=== PATIENT | female | born 1965 | race African-American/Black ===

== ENCOUNTER 2017-06-15 08:50 | Emergency (ER) | payer OTHER ==
[~2017-06-15] VITALS: Ht 160 cm; Wt 68.0 kg
--- NOTE | ~2017-06-15 | CR2 ---
[facility] A Service of [facility] RADIOLOGY TEXT RESULTS PATIENT: NIRMAL DIAS LOCATION: [facility] : 61 UNIT #: [id number] AGE: [address]: Cheri Hogue MD SEX: F ORDER DR: [id number] [facility] [address] [place], [place] [address] [id number] E MR#: [id number] Acc #: [id number] NAME: NIRMAL DIAS. : 1965 SEX: F STUDY DATE/TIME: 06/15/2017 9:45 UNIT: [facility] ROOM: STUDY DESCRIPTION: CR Abdomen Acute Series Attending Physician: Cheri Hogue M.D. Ordering Physician: Cheri Hogue M.D. Primary Care Physician: [facility] MEDICAL IMAGING REPORT This report is preliminary unless electronic signature is present EXAM Acute abdominal series 3 views, 06/15/2017 COMPARISON None HISTORY Left side rib and abdomen pain and constipation for 2 days. FINDINGS There is some spinal degenerative change and a thoracic or thoracolumbar levoscoliosis but no acute bony abnormality. Chest radiograph suggests mild cardiomegaly but otherwise shows no acute disease. Bowel gas pattern is normal. No evidence of obstruction or free air or mass. Dictated by... Seth Ortez M.D. THIS IS AN ELECTRONICALLY VERIFIED REPORT Seth Ortez M.D. at 06/15/2017 4:05 PM MIRACLE/tyrese TD: 06/15/2017 10:39 JOB #: [id number] MEDICAL IMAGING REPORT Page 1 of 1 COPY
[2017-06-15 09:47] LABS: BASOPHIL% 0.7 % (0-2.5); EOSINOPHIL# 0.1 X10e3 (0-0.7); EOSINOPHIL% 1.9 % (0.0-7.0); HEMATOCRIT 32.6 % (35.0-45.0); HEMOGLOBIN 10.4 gm/dL (12.0-16.0); LYMPHOCYTE# 1.4 X10e3 (1.0-3.5); LYMPHOCYTE% 32.7 % (17.0-45.0); MEAN CELL VOLUME 73.1 FL (83-96); MEAN CORPUSCULAR HEMOGLOBIN 23.4 PG (28-34); MEAN CORPUSCULAR HGB CONC 32.1 g/dL (30-36); MEAN PLATELET VOLUME 7.4 FL (6.5-11.5); MONOCYTE# 0.5 X10e3 (0-1.0); NEUTROPHIL# 2.3 X10e3 (1.5-7.1); NEUTROPHIL% 52.7 % (40-75); PLATELET COUNT 261 X10e3 (140-420); RED BLOOD COUNT 4.46 X10e (3.90-5.30); RED CELL DISTRIBUTION WIDTH 18.8 % (11.0-15.5); WHITE BLOOD COUNT 4.4 X10e3 (4.0-10.5)
[2017-06-15 09:49] LABS: DIFF IND NO
[2017-06-15 10:18] LABS: ALBUMIN SERUM 3.7 g/dL (3.5-5.0); BILIRUBIN, DIRECT 0.1 mg/dL (0.0-0.2); BILIRUBIN,INDIRECT 0.2 mg/dL (0.0-0.9); BILIRUBIN,TOTAL 0.3 mg/dL (0.2-2.0); BUN/CREATININE RATIO 16.66; CREATININE SERUM 0.6 mg/dL (0.6-1.4); GLOM FILT RATE Estimated 119.8 mL/min (>60); POTASSIUM 4.1 mmol/L (3.5-5.1); PROTEIN TOTAL SERUM 6.9 g/dL (6.0-8.3)
[2017-06-15 10:37] LABS: URINE SOURCE CLEAN CATCH
[2017-06-15 10:42] LABS: URINE APPEARANCE CLOUDY; URINE BILIRUBIN NEG (NEG); URINE BLOOD NEG (NEG); URINE COLOR YELLOW; URINE GLUCOSE NEG (NEG); URINE KETONE NEG (NEG); URINE LEUKOCYTE ESTERASE 1+ (NEG); URINE NITRATE NEG (NEG); URINE PROTEIN NEG (NEG); URINE SPECIFIC GRAVITY 1.018 (1.003-1.035)
[2017-06-15 10:43] LABS: CULTURE INDICATED? YES; U HYALINE CASTS AUWI 0-2 /[LPF]; URBCS1 AUWI 0-2 /[HPF] (0-2); URINE BACTERIA AUWI 1+ (NEGATIVE); URINE SQUAMOUS EPITHELIAL CELL MOD /[HPF]
== END 2017-06-15 11:15 | disposition home or self-care (01) ==
LOC: CED 08:50
PROVIDERS: Student in an Organized Health Care Education/Training Program
DX: R10.9 Unspecified abdominal pain (principal); F17.200 Nicotine dependence, unspecified, uncomplicated
CPT/HCPCS: 74022; 80048; 80076; 81003; 85025; 87086; 99284